=== PATIENT | male | born 1960 | race Caucasian/White ===

== ENCOUNTER 2020-02-25 10:16 | Day surgery (SDC) | payer OTHER ==
[~2020-02-25] VITALS: Ht 177.8 cm; Wt 92.3 kg
[~2020-02-25 10:16] MED LIST: GABA100 PO; PROP60
[2020-02-25] MEDS ORDERED: NAPR220 PO (10:45)
[2020-02-25] MEDS ORDERED: CYCL10 PO (10:45)
--- NOTE | 2020-02-25 10:49 | NUR ---
02/25/20 1049 HSAZIA ROTHMAN BP ELEVATED (189/120 AND 172/119) - WESLEY REYES NOTIFIED. NOTIFIED - NO NEW ORDERS.
== END 2020-02-25 11:52 | disposition home or self-care (01) ==
LOC: ORSCSDS 10:16
PROVIDERS: Student in an Organized Health Care Education/Training Program
PROC: 0DJD8ZZ Inspection of Lower Intestinal Tract, Via Natural or Artificial Opening Endoscopic (ICD-10-PCS; principal; 2020-02-25 11:30)
DX: Z12.11 Encounter for screening for malignant neoplasm of colon (principal); Z80.0 Family history of malignant neoplasm of digestive organs; K57.30 Diverticulosis of large intestine without perforation or abscess without bleeding; K64.4 Residual hemorrhoidal skin tags; E66.9 Obesity, unspecified; Z68.31 Body mass index [BMI] 31.0-31.9, adult; Z79.899 Other long term (current) drug therapy
CPT/HCPCS: J2704; J7120